=== PATIENT | male | born 1985 | race Caucasian/White ===

== ENCOUNTER 2025-04-12 04:58 | Emergency (ER) | payer SELFPAY ==
[~2025-04-12] VITALS: Ht 182.9 cm; Wt 65.8 kg
--- NOTE | 2025-04-12 07:07 | ERN ---
General Chief Complaint: Dizzy/Light Headed Stated Complaint: DIZZY Time Seen by MD: 06:51 History of Present Illness Initial Comments 39M presents with hunger & dizziness. He reports "heart issues." He reports that these symptoms are chronic and come & go. Patient is requesting food. Allergies: Coded Allergies: Penicillins (Unverified Allergy, Unknown, 04/12/25) Sulfa (Sulfonamide Antibiotics) (Unverified Allergy, Unknown, 04/12/25) Past Medical History Past Medical History: Asthma, Other Medical History Other: " HEART ISSUES" " LUNG ISSUES" Past Surgical History: Tonsillectomy ROS Dictation CONSTITUTIONAL: Dizzy HEAD/FACE: No signs of trauma. EENT: No eye pain, no blurred vision, no tearing, no double vision, no ear pain, no ear discharge, no nose pain, no nasal congestion, no throat pain, no throat swelling, no mouth pain. RESPIRATORY: No cough, no orthopnea, no SOB, no stridor, no wheezing. CARDIOVASCULAR: No chest pain, no edema, no palpitations, no syncope. GASTROINTESTINAL/ABDOMINAL: No abdominal pain, no constipation, no diarrhea, no nausea, no vomiting. GENITOURINARY: No abnormal discharge, no dysuria, no frequent urination, no hematuria. No complaints of pain in the genitals. MUSCULOSKELETAL: No back pain, no gout, no joint pain, no joint swelling, no muscle pain, no muscle stiffness, no neck pain. INTEGUMENTARY: No change in color, no change in hair/nails, no dryness, no lesion, no lumps, no rash. NEUROLOGICAL/PSYCH: No anxiety, not depressed, no emotional problem, no headache, no numbness, no pre-existing deficit, no history of seizures, no tremors, no weakness. HEMATOLOGIC/LYMPHATIC: Not anemic, no history of blood clots, no apparent bleeding, no bruising, glands not swollen. All Systems Negative, Except as Noted. Physical Exam Physical Exam Dictation VITAL SIGNS: Reviewed. GENERAL APPEARANCE: Alert, oriented x3, no acute distress. HEAD AND FACE: Non-traumatic. EYES: PERRL, pink conjunctivas, eyelid no trauma, anterior chamber clear. EARS: Pinnas intact and no signs of trauma or erythema. Ear canals clear and no discharge. TMs no erythema. NOSE: No discharge, no bleeding. OROPHARYNX: Mouth normal, teeth no caries, tongue pink. Pharynx clear, no erythema. Tonsils no exudates, no abscesses noted. Mucous membrane moist. NECK: Supple, non-tender, no thyromegaly, no masses, no JVD, no bruits. BREAST: Deferred. CHEST: No tenderness, no crepitus, no paradoxical movement, no retractions. LUNGS: Clear, well-ventilated, symmetric, no rales, no wheezing, no rhonchi, no stridor, good breath sounds bilaterally. HEART: Regular rate, regular rhythm, no murmur, no gallops. VASCULAR: No peripheral edema. ABDOMEN: Soft, positive bowel sounds, nondistended, no guarding, nontender, no rebound, no masses no hepatomegaly, no splenomegaly, no Glover's sign, no hernias. RECTAL: Deferred. GENITAL: Deferred. NEUROLOGICAL: Normal speech, gross motor function intact, gross sensory function intact. MUSCULOSKELETAL: Neck nontender, full range of motion, back nontender, full range of motion. EXTREMITIES: Nontender, full range of motion. SKIN: Color pink, dry, no turgor, no rash, no lacerations, no abrasions, no contusions. LYMPHATICS: Deferred. MDM CC: Dizziness with possible cardiac patient comorbidities: Patient reports heart issues limitations by social determinants of health: Uninsured Differential diagnosis: Arrhythmia, dehydration, secondary gain Vital signs are stable Clinical exam is unremarkable EKG: Sinus rhythm, normal axis, good R-wave progression, intervals are stable no STEMI. Independently interpreted by me. Patient was fed here in the ER. No labs or imaging indicated. I suspect the patient is here for food because it appears to be his main concern. Plan: Discharge ED Course Orders Procedure Category Date Status Time 12 Lead Ekg Tracing- EKG 04/12/25 Logged Technical 06:51 Vital Signs Date Time Temp Pulse Resp B/P (MAP) Pulse Ox O2 Delivery O2 Flow Rate FiO2 04/12/25 06:20 65 18 99/74 100 Room Air* 0 21 04/12/25 05:33 72 16 99/74 100 Room Air* 0 21 04/12/25 05:00 98.4 90 20 98/69 98 Room Air DX & DISP Disposition: Discharge Departure Impression: Primary Impression: Dizziness Condition: Stable Additional Instructions: Your vital signs are stable. Your EKG is normal. Please return to the emergency department as needed. Referrals: SELF,REFERRAL (PCP) JOCELIN REGALADO DO April 12, 2025 07:07
[2025-04-12 07:32] VITALS: BP 98/73; PULSE 69; RESP 17; TEMP 96.7; O2SAT 100
--- NOTE | 2025-04-12 09:54 | EKG ---
[facility] Test Date: 2025-04-12 Test Time: 07:24:45 Pat Name: NOELLE DAVIS Department: ED Room: Gender: Fructose Loader: [id number] : 1985 Requested By: JOCELIN REGALADO Order Number: [id number] Reading MD: Kalyn Brewer Measurements Intervals [place] Rate: 58 P: 73 CT: 154 QRS: 59 QRSD: 103 T: 64 QT: 432 QTc: 426 Interpretive Statements Sinus rhythm ST elevation suggests acute pericarditis No previous ECG available for comparison Electronically Signed On 04-12-2025 10:44:44 CDT by Kalyn Brewer Please click the below link to view image of tracing.
== END 2025-04-12 07:50 | disposition home or self-care (01) ==
LOC: EDH 04:58
DX: R42 Dizziness and giddiness (principal); J45.909 Unspecified asthma, uncomplicated; Z88.0 Allergy status to penicillin; Z88.2 Allergy status to sulfonamides; Z90.89 Acquired absence of other organs
CPT/HCPCS: 93005; 99283